=== PATIENT | male | born 1960 | race Caucasian/White ===

== ENCOUNTER 2017-11-04 16:13 | Emergency (ER) | payer SELFPAY ==
[~2017-11-04] VITALS: Ht 170.2 cm; Wt 80.9 kg
[2017-11-04 16:31] VITALS: BP 129/89
[2017-11-04] MEDS ORDERED: ULTRAM50 M1 PO (16:36)
[2017-11-04] MEDS ORDERED: PENICILLN VK500 MG PO (16:36)
== END 2017-11-04 16:44 | disposition home or self-care (01) | DRG 159 ==
LOC: ED 16:13
DX: K08.89 Other specified disorders of teeth and supporting structures (principal)

== ENCOUNTER 2018-07-16 12:08 | Emergency (ER) | payer SELFPAY ==
[~2018-07-16] VITALS: Ht 170.2 cm; Wt 80.0 kg
[~2018-07-16 12:08] MED LIST: PENICILLN VK500 MG PO; ULTRAM50 M1 PO
[2018-07-16] MEDS ORDERED: BACTROBAN TOP (15:41)
[2018-07-16] MEDS ORDERED: CLEOCIN300 MG PO (15:41)
[2018-07-16] MEDS ORDERED: PERCOCET 5/325M1 TAB PO (15:41)
[2018-07-16 16:13] VITALS: BP 133/99
== END 2018-07-16 16:16 | disposition home or self-care (01) | DRG 563 ==
LOC: ED 12:08
PROC: 0HQMXZZ Repair Right Foot Skin, External Approach (ICD-10-PCS; principal; 2018-07-16)
DX: S92.421B Displaced fracture of distal phalanx of right great toe, initial encounter for open fracture (principal); W31.2XXA Contact with powered woodworking and forming machines, initial encounter; Y93.89 Activity, other specified; Y92.009 Unspecified place in unspecified non-institutional (private) residence as the place of occurrence of the external cause

== ENCOUNTER 2018-07-22 16:25 | Emergency (ER) | payer SELFPAY ==
[~2018-07-22] VITALS: Ht 170.2 cm; Wt 71.8 kg
[~2018-07-22 16:25] MED LIST changes: +BACTROBAN TOP; +CLEOCIN300 MG PO; +PERCOCET 5/325M1 TAB PO
[2018-07-22 17:08] LABS: HEMATOCRIT 38.3 % (39.0-50.0); HEMOGLOBIN 12.9 g/dl (14.0-18.0); IMMATURE GRANULOCYTES 0.3 % (0.0-5.0); MEAN CORPUSCULAR HGB 30.6 pG CALC (26.0-32.0); MEAN CORPUSCULAR HGB CONC 33.7 g/L CALC (32.0-36.0); NEUT# 4.07 thou/uL (1.82-7.42); RED BLOOD COUNT 4.21 mill/uL (4.70-6.10); RED CELL DISTRI WIDTH 12.9 % (11.5-15.5)
[2018-07-22 17:33] LABS: ANION GAP 15 (6-22 (CALC)); BUN 15 mg/dL (9-20); BUN/CREATININE RATIO 16 (12-20 (CALC)); CARBON DIOXIDE 22 mmol/l (22-30); CHLORIDE 111 mmol/l (95-108); CREATININE 0.9 mg/dL (0.7-1.3); GFR > 60 ML/MIN (>=60 (CALC)); GFR FOR AFR.AMER. > 60 ML/MIN (>=60 (CALC)); POTASSIUM 3.8 mmol/l (3.5-5.1); SODIUM 144 mmol/l (137-146)
[2018-07-22] MEDS ORDERED: TRAMADOL HCL E100 MG PO (18:01)
[2018-07-22] MEDS ORDERED: CEPHALEXIN500 M1 PO (18:01)
[2018-07-22] MEDS ORDERED: BACTRIM DS1 TAB PO (18:01)
[2018-07-22 18:30] VITALS: BP 114/80
== END 2018-07-22 18:30 | disposition home or self-care (01) | DRG 603 ==
LOC: ED 16:25
PROVIDERS: Family Medicine
DX: L03.031 Cellulitis of right toe (principal); S91.101A Unspecified open wound of right great toe without damage to nail, initial encounter; X58.XXXA Exposure to other specified factors, initial encounter; Z59.0 Homelessness; Z91.19 Patient's noncompliance with other medical treatment and regimen

== ENCOUNTER 2018-07-25 16:16 | Emergency (ER) | payer SELFPAY ==
[~2018-07-25] VITALS: Ht 170.2 cm; Wt 71.8 kg
[~2018-07-25 16:16] MED LIST changes: +BACTRIM DS1 TAB PO; +CEPHALEXIN500 M1 PO; +TRAMADOL HCL E100 MG PO
[2018-07-25] MEDS ORDERED: BACTROBAN TOP (16:37)
[2018-07-25 16:42] VITALS: BP 104/76
== END 2018-07-25 16:52 | disposition home or self-care (01) | DRG 950 ==
LOC: ED 16:16
DX: S91.201D Unspecified open wound of right great toe with damage to nail, subsequent encounter (principal); X58.XXXD Exposure to other specified factors, subsequent encounter

== ENCOUNTER 2018-09-06 15:45 | Emergency (ER) | payer SELFPAY ==
[~2018-09-06] VITALS: Ht 170.2 cm; Wt 71.0 kg
[2018-09-06] MEDS ORDERED: TORADOL PO (16:17)
[2018-09-06] MEDS ORDERED: FLEXERIL PO (16:17)
[2018-09-06 16:22] VITALS: BP 117/68
== END 2018-09-06 16:22 | disposition home or self-care (01) | DRG 563 ==
LOC: ED 15:45
DX: S39.012A Strain of muscle, fascia and tendon of lower back, initial encounter (principal); X50.3XXA Overexertion from repetitive movements, initial encounter; Y93.89 Activity, other specified; Y99.0 Civilian activity done for income or pay

== ENCOUNTER 2019-10-03 19:18 | Emergency (ER) | payer SELFPAY ==
[~2019-10-03] VITALS: Ht 170.2 cm; Wt 59.0 kg
[~2019-10-03 19:18] MED LIST changes: +FLEXERIL PO; +TORADOL PO
[2019-10-03 20:23] LABS: IMMATURE GRANULOCYTES 0.3 % (0.0-5.0); MEAN CELL VOLUME 87.9 fL CALC (80.0-100.0); MEAN CORPUSCULAR HGB 30.2 pG CALC (26.0-32.0); MEAN CORPUSCULAR HGB CONC 34.3 g/dL CAL (32.0-36.0); NEUT# 5.12 thou/uL (1.82-7.42); RED BLOOD COUNT 5.14 mill/uL (4.70-6.10); RED CELL DISTRI WIDTH 12.4 % (11.5-15.5)
[2019-10-03 20:26] LABS: HEMATOCRIT 45.2 % (39.0-50.0); HEMOGLOBIN 15.5 g/dl (14.0-18.0)
[2019-10-03 20:33] LABS: PROTHROMBIN TIME 10.2 SECONDS (9.0-12.5)
[2019-10-03 20:36] LABS: ALBUMIN 4.2 g/dL (3.2-5.0); ALKALINE PHOSPHATASE 82 u/l (38-126); ANION GAP 16 (6-22 (CALC)); BILIRUBIN, TOTAL 1.2 mg/dL (0.0-1.4); BUN 17 mg/dL (9-20); BUN/CREATININE RATIO 17 (12-20 (CALC)); CARBON DIOXIDE 23 mmol/l (22-30); CHLORIDE 100 mmol/l (95-108); GFR > 60 ML/MIN (>=60 (CALC)); GFR FOR AFR.AMER. > 60 ML/MIN (>=60 (CALC)); POTASSIUM 4.2 mmol/l (3.5-5.1); SGOT/AST 38 u/l (17-59); TOTAL PROTEIN 7.8 g/dL (6.3-8.2)
[2019-10-03 20:39] LABS: SODIUM 135 mmol/l (137-146)
[2019-10-03 20:48] LABS: MYOGLOBIN 74 ng/mL (0 - 121)
[2019-10-03 21:11] LABS: URINE BLOOD DIPSTICK NEGATIVE (NEGATIVE); URINE GLUCOSE - DIPSTICK 100 mg/dL (NEGATIVE); URINE KETONE TRACE mg/dL (NEGATIVE); URINE LEUK ESTERASE NEGATIVE (NEGATIVE); URINE NITRITE - DIPSTICK NEGATIVE (Negative); URINE PH 6.5 (4.5-8.0); URINE PROTEIN - DIPSTICK 30 mg/dL (NEG-TRACE); URINE SPECIFIC GRAVITY 1.025
[2019-10-03 21:13] LABS: URINE COLOR DK. YELLOW
[2019-10-03 21:14] LABS: URINE BILIRUBIN - DIPSTICK NEGATIVE (NEGATIVE)
[2019-10-03 21:20] LABS: URINE RBC 0-2 RBC/hpf (0-5); URINE WBC 0-2 WBC/hpf (0-5)
[2019-10-03 22:02] VITALS: BP 114/61
[2019-10-04] MEDS ORDERED: ROBITUSSIN AC10 ML PO (17:22)
[2019-10-04] MEDS ORDERED: CEPHALEXIN500 MG PO (17:22)
== END 2019-10-03 22:00 | disposition home or self-care (01) | DRG 179 ==
LOC: ED 19:18
PROVIDERS: Family Medicine
DX: U07.1 COVID-19 (principal); J20.8 Acute bronchitis due to other specified organisms

== ENCOUNTER 2019-10-04 14:37 | Emergency (ER) | payer SELFPAY ==
[~2019-10-04] VITALS: Ht 170.2 cm; Wt 63.6 kg
[2019-10-04 15:36] LABS: HEMATOCRIT 42.7 % (39.0-50.0); HEMOGLOBIN 14.6 g/dl (14.0-18.0); IMMATURE GRANULOCYTES 0.4 % (0.0-5.0); MEAN CORPUSCULAR HGB 30.1 pG CALC (26.0-32.0); MEAN CORPUSCULAR HGB CONC 34.2 g/dL CAL (32.0-36.0); NEUT# 4.57 thou/uL (1.82-7.42); RED BLOOD COUNT 4.85 mill/uL (4.70-6.10); RED CELL DISTRI WIDTH 12.5 % (11.5-15.5)
[2019-10-04 15:53] LABS: ALBUMIN 3.8 g/dL (3.2-5.0); ALKALINE PHOSPHATASE 67 u/l (38-126); ANION GAP 12 (6-22 (CALC)); BILIRUBIN, TOTAL 0.8 mg/dL (0.0-1.4); BUN 16 mg/dL (9-20); BUN/CREATININE RATIO 18 (12-20 (CALC)); CARBON DIOXIDE 25 mmol/l (22-30); CHLORIDE 104 mmol/l (95-108); CREATININE 0.9 mg/dL (0.7-1.3); GFR > 60 ML/MIN (>=60 (CALC)); GFR FOR AFR.AMER. > 60 ML/MIN (>=60 (CALC)); POTASSIUM 4.3 mmol/l (3.5-5.1); SGOT/AST 35 u/l (17-59); SODIUM 137 mmol/l (137-146)
[2019-10-04 16:05] LABS: MYOGLOBIN 41 ng/mL (0 - 121)
[2019-10-04 16:39] LABS: URINE BILIRUBIN - DIPSTICK NEGATIVE (NEGATIVE); URINE BLOOD DIPSTICK NEGATIVE (NEGATIVE); URINE COLOR YELLOW; URINE GLUCOSE - DIPSTICK NEGATIVE (NEGATIVE); URINE KETONE NEGATIVE (NEGATIVE); URINE LEUK ESTERASE NEGATIVE (NEGATIVE); URINE NITRITE - DIPSTICK NEGATIVE (Negative); URINE PROTEIN - DIPSTICK NEGATIVE (NEG-TRACE); URINE SPECIFIC GRAVITY 1.025
[2019-10-04] MEDS ORDERED: CEPHALEXIN500 MG PO (17:22)
[2019-10-04] MEDS ORDERED: ROBITUSSIN AC10 ML PO (17:22)
[2019-10-04 18:15] VITALS: BP 121/84
== END 2019-10-04 18:15 | disposition home or self-care (01) | DRG 153 ==
LOC: ED 14:37
PROVIDERS: Emergency Medicine
DX: J06.9 Acute upper respiratory infection, unspecified (principal); F19.10 Other psychoactive substance abuse, uncomplicated

== ENCOUNTER 2019-10-06 15:45 | Emergency (ER) | payer SELFPAY ==
[~2019-10-06] VITALS: Ht 170.2 cm; Wt 55.0 kg
[~2019-10-06 15:45] MED LIST changes: +CEPHALEXIN500 MG PO; +ROBITUSSIN AC10 ML PO
[2019-10-06 17:44] LABS: HEMATOCRIT 42.6 % (39.0-50.0); HEMOGLOBIN 14.6 g/dl (14.0-18.0); IMMATURE GRANULOCYTES 0.2 % (0.0-5.0); MEAN CELL VOLUME 87.3 fL CALC (80.0-100.0); MEAN CORPUSCULAR HGB 29.9 pG CALC (26.0-32.0); MEAN CORPUSCULAR HGB CONC 34.3 g/dL CAL (32.0-36.0); NEUT# 5.93 thou/uL (1.82-7.42); RED BLOOD COUNT 4.88 mill/uL (4.70-6.10); RED CELL DISTRI WIDTH 12.3 % (11.5-15.5)
[2019-10-06 17:59] LABS: ALBUMIN 3.8 g/dL (3.2-5.0); ALKALINE PHOSPHATASE 72 u/l (38-126); ANION GAP 12 (6-22 (CALC)); BUN 12 mg/dL (9-20); BUN/CREATININE RATIO 16 (12-20 (CALC)); CARBON DIOXIDE 26 mmol/l (22-30); CHLORIDE 104 mmol/l (95-108); CREATININE 0.7 mg/dL (0.7-1.3); GFR > 60 ML/MIN (>=60 (CALC)); GFR FOR AFR.AMER. > 60 ML/MIN (>=60 (CALC)); POTASSIUM 4.2 mmol/l (3.5-5.1); SGOT/AST 33 u/l (17-59); SODIUM 138 mmol/l (137-146); TOTAL PROTEIN 7.2 g/dL (6.3-8.2)
[2019-10-06 18:06] LABS: PROTHROMBIN TIME 10.2 SECONDS (9.0-12.5)
[2019-10-06 18:11] LABS: MYOGLOBIN 26 ng/mL (0 - 121)
[2019-10-06 20:05] VITALS: BP 111/70
--- NOTE | 2019-10-12 11:19 | NUR ---
Notified Dr Chavis of blood culture growing bacillus species in 1/[address] Chavis, call pt to see how he is doing. Recommend re-evaluation if pt is experiencing SOB or other symtpoms. No patient phone number listed in chart. Sent certified letter to address on file.
== END 2019-10-06 20:38 | disposition home or self-care (01) | DRG 179 ==
LOC: ED 15:45
PROVIDERS: Emergency Medicine
DX: U07.1 COVID-19 (principal); J02.0 Streptococcal pharyngitis
CPT/HCPCS: Q9967

== ENCOUNTER 2020-07-14 18:52 | Emergency (ER) | payer SELFPAY ==
[~2020-07-14] VITALS: Ht 170.2 cm; Wt 58.0 kg
[2020-07-14] MEDS ORDERED: BACTRIM DS1 TAB PO (20:00)
[2020-07-14 20:16] VITALS: BP 128/77
== END 2020-07-14 20:24 | disposition home or self-care (01) | DRG 603 ==
LOC: ED 18:52
DX: L03.012 Cellulitis of left finger (principal)

== ENCOUNTER 2020-10-18 20:26 | Emergency (ER) | payer SELFPAY ==
[~2020-10-18] VITALS: Ht 170.2 cm; Wt 71.0 kg
[2020-10-18 20:55] VITALS: BP 141/99
[2020-10-18] MEDS ORDERED: VOLTAREN75 MG PO (22:21)
[2020-10-18] MEDS ORDERED: CIPROFLOXACN500 MG PO (22:21)
== END 2020-10-18 22:40 | disposition home or self-care (01) | DRG 605 ==
LOC: ED 20:26
DX: S91.332A Puncture wound without foreign body, left foot, initial encounter (principal); W45.0XXA Nail entering through skin, initial encounter; Y92.007 Garden or yard of unspecified non-institutional (private) residence as the place of occurrence of the external cause

== ENCOUNTER 2020-12-08 13:09 | Emergency (ER) | payer SELFPAY ==
[~2020-12-08] VITALS: Ht 170.2 cm; Wt 49.0 kg
[~2020-12-08 13:09] MED LIST changes: +CIPROFLOXACN500 MG PO; +VOLTAREN75 MG PO
[2020-12-08 14:03] LABS: HEMATOCRIT 35.2 % (39.0-50.0); HEMOGLOBIN 11.6 g/dl (14.0-18.0); MEAN CELL VOLUME 93.1 fL CALC (80.0-100.0); MEAN CORPUSCULAR HGB 30.7 pG CALC (26.0-32.0); NEUT# 4.45 thou/uL (1.82-7.42); RED BLOOD COUNT 3.78 mill/uL (4.70-6.10); RED CELL DISTRI WIDTH 12.7 % (11.5-15.5)
[2020-12-08 14:07] LABS: D-DIMER 1.32 mg/L (0.19-0.60)
[2020-12-08 14:08] LABS: ALBUMIN 3.6 g/dL (3.2-5.0); ANION GAP 10 (6-22 (CALC)); BUN 21 mg/dL (9-20); BUN/CREATININE RATIO 25 (12-20 (CALC)); CARBON DIOXIDE 25 mmol/l (22-30); CHLORIDE 107 mmol/l (95-108); CREATININE 0.8 mg/dL (0.7-1.3); ETHYL ALCOHOL 0 mg/dl (0-30); GFR > 60 ML/MIN (>=60 (CALC)); GFR FOR AFR.AMER. > 60 ML/MIN (>=60 (CALC)); LIPASE 230 u/l (23-300); MAGNESIUM 1.9 mg/dL (1.6-2.3); POTASSIUM 3.9 mmol/l (3.5-5.1); SGOT/AST 41 u/l (17-59); SODIUM 139 mmol/l (137-146); TOTAL PROTEIN 6.3 g/dL (6.3-8.2)
[2020-12-08 14:13] LABS: ACT PARTIAL THROMBO TIME 22.8 SECONDS (20.0-32.5); PROTHROMBIN TIME 10.9 SECONDS (9.0-12.5)
[2020-12-08 14:19] LABS: ALKALINE PHOSPHATASE 131 u/l (38-126); BILIRUBIN, TOTAL 0.2 mg/dL (0.0-1.4)
[2020-12-08] MEDS ORDERED: ULTRAM50 MG PO (15:09)
[2020-12-08 15:50] VITALS: BP 129/75
== END 2020-12-08 16:00 | disposition home or self-care (01) | DRG 74 ==
LOC: ED 13:09
DX: G62.9 Polyneuropathy, unspecified (principal); B94.8 Sequelae of other specified infectious and parasitic diseases
CPT/HCPCS: Q9967

== ENCOUNTER 2023-12-14 14:11 | Inpatient (IN) | payer SELFPAY ==
[~2023-12-14] VITALS: Ht 170.2 cm; Wt 59.6 kg
[2023-12-14] VITALS (18 sets, daily range): BP systolic 109–135; BP diastolic 72–99
[~2023-12-14 14:11] MED LIST changes: +IBUPROFEN600 MG PO; +TRAMADOL HYDROC50 M1 PO; +ULTRAM50 MG PO
[2023-12-14] MEDS ORDERED: SODIUM CHLORIDE 0.9% 1,000 ML IV ONE (14:15)
[2023-12-14 14:27] LABS: BASO% 0.5 % (0-3); EOS% 0.7 % (0-8); HEMATOCRIT 43.2 % (39.0-50.0); HEMOGLOBIN 14.6 g/dl (14.0-18.0); IMMATURE GRANULOCYTES 0.2 % (0.0-5.0); LYMPH% 19.8 % (15-41); MEAN CORPUSCULAR HGB 30.4 pG CALC (26.0-32.0); MEAN CORPUSCULAR HGB CONC 33.8 g/dL CAL (32.0-36.0); MONO% 9.2 % (2-13); NEUT# 10.71 thou/uL (1.82-7.42); NEUT% 69.6 % (42-76); RED BLOOD COUNT 4.8 mill/uL (4.70-6.10); RED CELL DISTRI WIDTH 12.9 % (11.5-15.5)
[2023-12-14] MEDS ORDERED: METOCLOPRAMIDE HCL 10 MG/2 ML SDV IV ONE (14:45)
[2023-12-14 14:50] LABS: POTASSIUM 4.2 mmol/l (3.5-5.1)
[2023-12-14 14:51] LABS: ALBUMIN 5.1 g/dL (3.2-5.0); CREATININE 2.1 mg/dL (0.7-1.3); TOTAL PROTEIN 8.3 g/dL (6.3-8.2)
[2023-12-14 15:19] LABS: URINE BILIRUBIN - DIPSTICK Negative (NEGATIVE); URINE BLOOD DIPSTICK Negative (NEGATIVE); URINE GLUCOSE - DIPSTICK Negative (NEGATIVE); URINE KETONE Trace mg/dL (NEGATIVE); URINE LEUK ESTERASE Negative (NEGATIVE); URINE NITRITE - DIPSTICK Negative (Negative); URINE PH 5.5 (4.5-8.0); URINE PROTEIN - DIPSTICK 30 mg/dL (NEG-TRACE); URINE SPECIFIC GRAVITY >=1.030
[2023-12-14 15:33] LABS: URINE COLOR Dark yellow
[2023-12-14 15:34] LABS: URINE RBC 0-2 RBC/hpf (0-5); URINE WBC 0-2 WBC/hpf (0-5)
[2023-12-14] MEDS ORDERED: Polyethylene Glycol 3350 17 GM/PKT PO PRN (17:20)
[2023-12-14] MEDS ORDERED: ALUM & MAG HYDROX-SIMETHICONE 30 ML PO PRN (17:20)
[2023-12-14] MEDS ORDERED: IBUPROFEN 800 MG/TAB PO PRN (17:20)
[2023-12-14] MEDS ORDERED: ONDANSETRON HCl 4 MG/2 ML SDV IV PRN (17:20)
[2023-12-14] MEDS ORDERED: FAMOTIDINE 10MG/ML 2ML SDV IV PRN (17:20)
[2023-12-14] MEDS ORDERED: ONDANSETRON 4 MG/TAB ODT PO PRN (17:20)
[2023-12-14] MEDS ORDERED: SODIUM CHLORIDE 0.9% 1,000 ML IV PRN ×2 (18:15→18:55)
[2023-12-14] MEDS ORDERED: MAGNESIUM HYDROXIDE 30 ML UDC PO PRN (18:55)
[2023-12-14] MEDS ORDERED: ACETAMINOPHEN 325 MG/TAB PO PRN (18:55)
[2023-12-14] MEDS ORDERED: ENOXAPARIN SODIUM 40 MG/0.4 ML SYR SC SCH (21:00)
[2023-12-15 03:32] VITALS: BP 114/80
[2023-12-15 04:26] VITALS: BP 114/80
[2023-12-15 07:14] VITALS: BP 113/68
[2023-12-15 08:18] LABS: BASO% 0.5 % (0-3); EOS% 7.9 % (0-8); IMMATURE GRANULOCYTES 0.1 % (0.0-5.0); LYMPH% 36.6 % (15-41); MEAN CELL VOLUME 90.5 fL CALC (80.0-100.0); MEAN CORPUSCULAR HGB 30.7 pG CALC (26.0-32.0); MEAN CORPUSCULAR HGB CONC 33.9 g/dL CAL (32.0-36.0); MONO% 8.4 % (2-13); NEUT# 3.6 thou/uL (1.82-7.42); NEUT% 46.5 % (42-76); RED BLOOD COUNT 3.91 mill/uL (4.70-6.10); RED CELL DISTRI WIDTH 12.8 % (11.5-15.5)
[2023-12-15 08:29] LABS: HEMATOCRIT 35.4 % (39.0-50.0)
[2023-12-15 08:42] LABS: BILIRUBIN, TOTAL 1.6 mg/dL (0.2-1.3)
[2023-12-15 08:52] LABS: ALBUMIN 3.7 g/dL (3.2-5.0); CREATININE 1.1 mg/dL (0.7-1.3); TOTAL PROTEIN 6.3 g/dL (6.3-8.2)
[2023-12-15] MEDS ORDERED: ONDANSETRON HCl 4 MG/2 ML SDV IV PRN (09:00)
[2023-12-15] MEDS ORDERED: Polyethylene Glycol 3350 17 GM/PKT PO PRN (10:15)
[2023-12-15 10:50] VITALS: BP 123/81
[2023-12-15 15:02] VITALS: BP 127/84
[2023-12-15 19:04] VITALS: BP 120/78
[2023-12-16 00:08] VITALS: BP 134/91
[2023-12-16 04:06] VITALS: BP 116/75
[2023-12-16 05:49] LABS: BASO% 0.5 % (0-3); HEMATOCRIT 36.4 % (39.0-50.0); HEMOGLOBIN 12.6 g/dl (14.0-18.0); IMMATURE GRANULOCYTES 0.1 % (0.0-5.0); LYMPH% 24.5 % (15-41); MEAN CELL VOLUME 89.7 fL CALC (80.0-100.0); MEAN CORPUSCULAR HGB CONC 34.6 g/dL CAL (32.0-36.0); MONO% 8.9 % (2-13); NEUT# 4.53 thou/uL (1.82-7.42); RED BLOOD COUNT 4.06 mill/uL (4.70-6.10); RED CELL DISTRI WIDTH 12.5 % (11.5-15.5)
[2023-12-16 06:01] LABS: ALBUMIN 3.7 g/dL (3.2-5.0); BILIRUBIN, TOTAL 1.3 mg/dL (0.2-1.3); POTASSIUM 4.2 mmol/l (3.5-5.1); TOTAL PROTEIN 6.2 g/dL (6.3-8.2)
[2023-12-16 06:43] VITALS: BP 133/75
[2023-12-16 10:20] VITALS: BP 115/75
== END 2023-12-16 12:57 | disposition home or self-care (01) | DRG 923 ==
LOC: ED 14:11 → ED-I 15:47 → ED 16:15 → MS2 16:16
PROVIDERS: Nurse Practitioner; Nurse Practitioner Family; ADMIT Internal Medicine; ATTEND Internal Medicine
DX: T67.3XXA Heat exhaustion, anhydrotic, initial encounter (principal); N17.9 Acute kidney failure, unspecified; M62.82 Rhabdomyolysis; Z59.00 Homelessness unspecified; E86.0 Dehydration; X30.XXXA Exposure to excessive natural heat, initial encounter; Z86.16 Personal history of COVID-19
CPT/HCPCS: J1650